=== PATIENT | male | born 1980 | race American Indian/Alaskan Native ===

== ENCOUNTER 2017-08-03 12:00 | Emergency (ER) | payer OTHER ==
[2017-08-03] MEDS ORDERED: MOTRIN PO ONE (15:52)
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
[2017-08-03 16:24] VITALS: BP 133/93
== END 2017-08-03 16:32 | disposition home or self-care (01) ==
LOC: ED 12:00
DX: S13.4XXA Sprain of ligaments of cervical spine, initial encounter (principal); I10 Essential (primary) hypertension; Z87.891 Personal history of nicotine dependence; V49.49XA Driver injured in collision with other motor vehicles in traffic accident, initial encounter; Y92.488 Other paved roadways as the place of occurrence of the external cause; Y93.89 Activity, other specified; Y99.9 Unspecified external cause status
CPT/HCPCS: 99282